=== PATIENT | female | born 1955 | race Caucasian/White ===

== ENCOUNTER → 2016-07-19 | Outpatient (CLI) | payer OTHER | LOC: RAD 08:15 | DX: K31.7 Polyp of stomach and duodenum (principal); K25.9 Gastric ulcer, unspecified as acute or chronic, without hemorrhage or perforation; K44.9 Diaphragmatic hernia without obstruction or gangrene | CPT/HCPCS: 36415; 74246; 82941 ==

== ENCOUNTER 2021-02-10 13:19 | Emergency (ER) | payer MEDICARE ==
[~2021-02-10 13:19] MED LIST: ALDACTONE25 MG PO; AMIODARONE HCL200 MG PO; ATORVASTATIN CA20 MG PO; BACTRIM DS TAB1 EACH PO; CELEXA20 MG PO; CITALOPRAM HBR20 MG PO; CLEOCIN 150MG150 MG PO; DYAZIDE 37.5/251 EA PO; ECOTRIN81 MG PO; ELIQUIS 5 MG TAB5 MG PO; ELIQUIS5 MG PO; FLECAINIDE ACE100 MG PO; ISOSORBIDE MONO30 MG PO; KEFLEX500 MG PO; LOPRESSOR 25 MG25 MG PO; METAMUCIL PLUS1 EACH PO; METOPROLOL TART25 MG PO; PEPTO BISMOL PO; PROBIOTIC & AC1 EACH PO; PROTONIX40 M1 PO; TENORMIN 25 MG25 MG PO
== END 2021-02-10 14:40 | disposition home or self-care (01) ==
LOC: ER1 13:19
DX: S16.1XXA Strain of muscle, fascia and tendon at neck level, initial encounter (principal); S00.03XA Contusion of scalp, initial encounter; I48.91 Unspecified atrial fibrillation; I10 Essential (primary) hypertension; Z95.1 Presence of aortocoronary bypass graft; Z79.1 Long term (current) use of non-steroidal anti-inflammatories (NSAID); W10.9XXA Fall (on) (from) unspecified stairs and steps, initial encounter; Y92.009 Unspecified place in unspecified non-institutional (private) residence as the place of occurrence of the external cause
CPT/HCPCS: 70450; 72125; 99283

== ENCOUNTER → 2021-03-16 | Outpatient (CLI) | payer MEDICARE | LOC: HEART 5 09:05 | DX: Z79.899 Other long term (current) drug therapy (principal) | CPT/HCPCS: 94060; 94729 ==

== ENCOUNTER 2021-04-08 07:37 | Inpatient (IN) | payer MEDICARE ==
[~2021-04-08] VITALS: Ht 177.8 cm; Wt 152.0 kg
[2021-04-08 10:32] LABS: HEMOGLOBIN 14.1 gm/dl (12.3-15.3); RED BLOOD COUNT 4.82 M/UL (4.00-5.10); WHITE BLOOD COUNT 8.3 K/UL (4.5-11.0)
[2021-04-08 12:28] LABS: BUN/CREATININE RATIO 13 (0-10)
[2021-04-08] MEDS ORDERED: AMLODIPINE BESYL5 MG PO (23:31)
[2021-04-10 09:03] LABS: HEMOGLOBIN 12.6 gm/dl (12.3-15.3); RED BLOOD COUNT 4.44 M/UL (4.00-5.10); WHITE BLOOD COUNT 8.1 K/UL (4.5-11.0)
[2021-04-10 09:28] LABS: BUN/CREATININE RATIO 12 (0-10)
[2021-04-11 07:47] LABS: HEMOGLOBIN 12.7 gm/dl (12.3-15.3); RED BLOOD COUNT 4.54 M/UL (4.00-5.10)
[2021-04-11 08:03] LABS: WHITE BLOOD COUNT 10.7 K/UL (4.5-11.0)
[2021-04-11 08:10] LABS: BUN/CREATININE RATIO 10 (0-10)
[2021-04-12 06:32] LABS: HEMOGLOBIN 12.4 gm/dl (12.3-15.3); RED BLOOD COUNT 4.29 M/UL (4.00-5.10)
[2021-04-12 06:35] LABS: WHITE BLOOD COUNT 7.5 K/UL (4.5-11.0)
[2021-04-12 08:58] LABS: BUN/CREATININE RATIO 15 (0-10)
[2021-04-13 05:55] LABS: HEMOGLOBIN 11.9 gm/dl (12.3-15.3); RED BLOOD COUNT 4.1 M/UL (4.00-5.10)
[2021-04-14 05:57] LABS: HEMOGLOBIN 9.4 gm/dl (12.3-15.3); RED BLOOD COUNT 3.29 M/UL (4.00-5.10); WHITE BLOOD COUNT 15.1 K/UL (4.5-11.0)
[2021-04-14] MEDS ORDERED: JANTOVEN10 MG PO (10:33)
[2021-04-14] MEDS ORDERED: ATORVASTATIN CA20 MG PO (10:33)
== END 2021-04-14 17:07 | disposition home or self-care (01) | DRG 176 ==
LOC: ER1 07:37 → CDU 20:51 → M/S 22:10
PROVIDERS: Internal Medicine; Physician Assistant; ADMIT Internal Medicine
DX: I26.94 Multiple subsegmental thrombotic pulmonary emboli without acute cor pulmonale (principal); Z68.42 Body mass index [BMI] 45.0-49.9, adult; R00.0 Tachycardia, unspecified; I25.10 Atherosclerotic heart disease of native coronary artery without angina pectoris; W01.0XXA Fall on same level from slipping, tripping and stumbling without subsequent striking against object, initial encounter; I48.91 Unspecified atrial fibrillation; I10 Essential (primary) hypertension; K21.9 Gastro-esophageal reflux disease without esophagitis; E66.01 Morbid (severe) obesity due to excess calories; Z20.822 Contact with and (suspected) exposure to COVID-19; Z96.643 Presence of artificial hip joint, bilateral; Z96.653 Presence of artificial knee joint, bilateral; S21.219A Laceration without foreign body of unspecified back wall of thorax without penetration into thoracic cavity, initial encounter; M19.91 Primary osteoarthritis, unspecified site; F41.9 Anxiety disorder, unspecified; Z90.49 Acquired absence of other specified parts of digestive tract; Z95.5 Presence of coronary angioplasty implant and graft; Z82.49 Family history of ischemic heart disease and other diseases of the circulatory system; Z80.1 Family history of malignant neoplasm of trachea, bronchus and lung; Z79.01 Long term (current) use of anticoagulants
CPT/HCPCS: 36415; 71045; 80053; 81001; 82550; 82553; 82962; 83605; 83874; 84439; 84443; 84484; 85025; 85379; 85610; 85730; 93005; 93970; 93971; 94640; 94664; 94760; 96374; 99285; J1644; J7030; J7120; Q9967; U0002

== ENCOUNTER → 2021-05-02 | Outpatient (CLI) | payer MEDICARE ==
[~2021-05-02] MED LIST changes: +AMLODIPINE BESYL5 MG PO; +JANTOVEN10 MG PO
== END ==
LOC: KOH-I 13:18
DX: M79.604 Pain in right leg (principal); M17.11 Unilateral primary osteoarthritis, right knee
CPT/HCPCS: 73502; 73552; 73560

== ENCOUNTER → 2021-05-11 | Outpatient (CLI) | payer MEDICARE | LOC: HEART 5 15:21 | DX: R09.89 Other specified symptoms and signs involving the circulatory and respiratory systems (principal) ==